=== PATIENT | male | born 1985 | race African-American/Black ===

== ENCOUNTER 2018-05-02 17:50 | Emergency (ER) | payer SELFPAY ==
--- NOTE | 2018-05-02 18:27 | ER Document Report ---
HPI - HPI Patient complains to provider of: Breast lumps Time Seen by Provider: 05/02/18 18:20 Onset: Other - 3 weeks Onset/Duration: Persistent Quality of pain: Achy Pain Level: 2 Context: Patient complains of breast lump to bilateral breast for the past 3 weeks. Patient denies any fever drainage or discharge. Patient denies any cough or recent illness. Patient without any sore throat. Patient denies any fever. Patient does report a family history of breast cancer. Patient states he came in today because this was his only day off. Associated Symptoms: Other - Breast lump Exacerbated by: Denies Relieved by: Denies Similar symptoms previously: No Recently seen / treated by doctor: No - ROS ROS below otherwise negative: Yes Systems Reviewed and Negative: Yes All other systems reviewed and negative - CONSTITUTIONAL Constitutional: DENIES: Fever, Chills - EENT EENT: DENIES: Sore Throat - NEURO Neurology: DENIES: Headache - CARDIOVASCULAR Cardiovascular: DENIES: Chest pain - DERM Skin Color: Normal Skin Problems: None Past Medical History - General Information source: Patient - Social History Smoking Status: Current Every Day Smoker Smoking Education Provided: Yes Frequency of alcohol use: None Drug Abuse: None 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 IN LAST 30 DAYS: No - HEENT HEENT: Atraumatic, Normocephalic - NECK Neck: Normal Inspection, Supple. negative: Lymphadenopathy-Left, Lymphadenopathy-Right - RESPIRATORY Respiratory: Breath Sounds Normal, No Respiratory Distress Notes: Patient with tender lump to right breast at the 12 o'clock position just superior to areola of R breast, pt with additional small nodular lump under L breast areola, normal skin color and temperature to bilateral breasts, normal contour, no concern for abscess - CARDIOVASCULAR Cardiovascular: Regular Rate, Regular Rhythm, No Murmur - BACK Back: Normal Inspection - MUSCULOSKELETAL/EXTREMETIES Musculoskeletal/Extremeties: EDWIGE RESENDEZ - NEURO Level of Consciousness: Awake, Alert, Appropriate Motor/Sensory: No Motor Deficit - DERM Integumentary: Warm, Dry, No Rash. negative: Abscess Course - Re-evaluation Re-evalutation: 05/02/18 18:[address] Woods regarding patient presentation diagnostic evaluation. Recommends obtaining a prolactin level and advising patient to follow-up with primary doctor on outpatient basis. - Vital Signs Vital signs: Temp Pulse Resp BP Pulse Ox 98.6 F 103 H 20 158/103 H 97 05/02/18 18:08 05/02/18 18:08 05/02/18 18:08 05/02/18 18:08 05/02/18 18:08 Discharge - Discharge Clinical Impression: Breast lump Condition: Stable Disposition: HOME, SELF-CARE Instructions: Breast Lumps ([facility]) Additional Instructions: Return immediately for any new or worsening symptoms Followup with your primary care provider, call tomorrow to make a followup appointment Follow-up with a primary doctor for further evaluation, they can schedule you an outpatient mammogram and/or ultrasound for further evaluation of lumps to breast bilaterally Forms: Smoking Cessation Education Referrals: [facility] [Provider Group] - Follow up as needed [facility] [Provider Group] - 05/06/18
[2018-05-02 19:03] VITALS: BP 159/104
== END 2018-05-02 19:28 | disposition home or self-care (01) ==
LOC: ER 17:50
DX: N63.42 Unspecified lump in left breast, subareolar (principal); N63.41 Unspecified lump in right breast, subareolar; F17.200 Nicotine dependence, unspecified, uncomplicated; Z80.3 Family history of malignant neoplasm of breast
CPT/HCPCS: 36415; 84146; 99283